=== PATIENT | female | born 1955 | race Caucasian/White ===

== ENCOUNTER 2024-12-16 15:04 | Emergency (ER) | payer BC ==
[~2024-12-16] VITALS: Ht 165.1 cm; Wt 54.5 kg
[2024-12-16 15:28] VITALS: TEMP 98.6
[2024-12-16] MEDS: propofol 10mg/ml 20ml vial IV ONE (15:40)
--- NOTE | 2024-12-16 15:46 | RADIOLOGY REPORT ---
Indication: TRAUMA, FALL, RIGHT SHOULDER PAIN Technique: 3 views right shoulder Comparison: None FINDINGS/IMPRESSION: Comminuted and impacted fracture of the right humeralm head and neck. There is approximately 14 mm d isplacement of the right humeral neck. Displaced greater tuberosity fracture fragment.
[2024-12-16] MEDS: morphine 4 MG/ML inj SYRINge IV ONE (15:48)
[2024-12-16] MEDS: HYDROcodone/acetaminophen 10/325mg tab PO ONE (16:18)
--- NOTE | 2024-12-16 16:25 | Physician Documentation ---
History of Present Illness ~ Chief Complaint: Mechanical Fall Stated Complaint: SHOULDER PAIN Time Seen by MD: 15:24 OK to notify your PCP?: Yes Source: patient, EMS Mode of Arrival: EMS Exam Limitations: no limitations HPI Chief Complaint: Fall, right shoulder injury Caveat: None Independent Historians: Paramedics History of Present Illness: Patient is a 69-year-old woman brought in by paramedics from home after having fallen. This occurred just prior to arrival. Patient was outside putting water in her bird bath when she tripped over the hose. Patient landed on her right shoulder. Pain is moderate to severe and is worse with any attempts at movement. She has swelling to the right shoulder. Patient denies hitting her head or neck. No neck pain. No back pain. Patient denies any other injuries. Review of systems: All systems were reviewed and are negative except for what is indicated in the history of present illness. Past Medical History: Past Surgical History: Noncontributory Social History: Tobacco use, daily alcohol use, no other drug use Medications: Reviewed as documented Nursing Notes Allergies: Reviewed as documented in Nursing Notes Medication Reconciliation Allergies: Coded Allergies: No Known Allergies (Unverified , 12/16/24) Past Medical History Smoking Status: Current every day smoker Review of Systems All Other Systems at this time: Reviewed and Negative ROS PATIENT DENIES ANY OTHER ACUTE SYMPTOMS OTHER THAN ABOVE. ALL OTHER SYSTEMS ARE NEGATIVE Physical Exam Vital Signs: RN Vital Signs have been reviewed: Yes, Temperature: 98.6, Heart Rate: 101, Respiratory Rate: 14, BP: 204/122, Pulse Oximetry: 98, Weight: 54.550 Oxygen Flow Rate: 0 Pulse Oximetry Reflects: adequate oxygenation Physical Exam General Appearance: MODERATE DISTRESS HEENT: Normal OP, moist oral mucosa, PERRL, EOMI, HEAD AND FACE. TRAUMATIC Neck: supple, normal ROM, trachea midline, NO MIDLINE TENDERNESS Pulmonary: No respiratory distress, CTA, BS equal Cardiac: RRR, no murmur, rub or gallop, GI: nondistended, soft, nontender, normal bowel sounds, no guarding, no rebound Extremities: EXTREME ECCHYMOSIS AND SWELLING OVER THE ANTEROMEDIAL RIGHT SHOULDER. DECREASED RANGE OF MOTION. Skin: intact, dry, warm, no rashes Neuro: AAOx3, speech is clear, no focal motor weakness, NORMAL FLEXION EXTENSION OF THE PATIENT'S RIGHT HAND AT THE WRIST. SENSATION INTACT TO LIGHT TOUCH. 2+ RADIAL PULSES. Psych: normal affect, good eye contact, no apparent hallucination, normal speech Progress Results/Orders Results/Orders Orders - MATILDA HERMAN MD Shoulder, Complete (Min 2 Vws) (12/16/24 15:25) Completed Orders - MATILDA HERMAN MD Morphine 4mg/Ml Inj. (Morphine Inj.) (12/16/24 15:25) Shoulder, Complete (Min 2 Vws) (12/16/24 15:25) Propofol Inj (Diprivan Inj) (12/16/24 15:40) Hydrocodone/Apap 10/325 (Raymond 10/325mg (12/16/24 15:50) Medications Received in ER Medications (Trade) Dose Ordered Sig/Geronimo Route PRN Reason Start Time Stop Time Status Last Admin Dose Admin (morphine inj.) 4 mg ONCE ONCE IV 12/16/24 15:25 12/16/24 15:27 DC 12/16/24 15:48 4 MG (Raymond 10/325mg tab) 1 tab ONCE ONCE PO 12/16/24 15:50 12/16/24 15:51 DC 12/16/24 16:18 1 TAB Vital Signs 12/16/24 12/16/24 12/16/24 15:28 15:48 16:18 Temp 98.6 Pulse 101 Resp 16 16 14 B/P (MAP) 204/122 Pulse Ox 98 O2 Flow Rate 0 Medical Decision Making Findings Differential diagnosis includes but is not limited to: HUMERUS FRACTURE, SHOULD ER DISLOCATION, CLAVICLE FRACTURE, ROTATOR CUFF INJURY Shoulder x-ray, two views, indication: Trauma and pain to right shoulder Impression: Comminuted displaced fracture of the proximal humerus at the surgical neck. Emergency department course/medical decision-making: Patient presents with severe swelling pain and tenderness to the right shoulder after having fallen on it. Patient has a comminuted proximal right humerus fracture. Patient will be placed in a shoulder immobilizer. Patient was given morphine 4 mg IV, Zofran 4 mg IV and Raymond 10 mg p.o.. Case discussed with orthopedist Dr. Davey. Patient does not require admission. Patient was stable for discharge. Test results and all the above was discussed and reviewed with the patient. Departure Time of Disposition: 16:20 Disposition: 01 HOME / SELF CARE / HOMELESS Impression: Primary Impression: Fracture of humerus Qualified Codes: S42.241A - 4-part fracture of surgical neck of right humerus, initial encounter for closed fracture Condition: Stable Discharge Instructions: Humerus Fracture Treated With Immobilization, [id number] Additional Instructions: YOU HAVE BROKEN YOUR SHOULDER. FOLLOW-UP WITH DR. DAVEY. CALL HIS OFFICE 1ST THING THURSDAY MORNING. TREATMENT AT THIS TIME WILL BE PAIN MEDICATION AND USE OF THE SHOULDER IMMOBILIZER UNTIL YOU FOLLOW UP WITH DR. DAVEY. Referrals: PETEY DAVEY Jr., MD Prescriptions Hydrocodone Bit/Acetaminophen (Hydrocodone-Apap 10-325 Tablet) 10mg/325mg Tablet 1 TAB PO TID PRN PRN for pain for 10 Days, #30 TAB Prov: MATILDA HERMAN MD 12/16/24 Education Educated: Patient Educated regarding: diagnosis, treatment, need for follow up Signature Scribe Signature: No scribe Attestation: No scribe MATILDA HERMAN MD December 16, 2024 16:25
[2024-12-16] MEDS ORDERED: HYDR-3973 PO (16:28)
[2024-12-16 16:44] VITALS: BP 132/75; PULSE 62; RESP 16; O2SAT 98
== END 2024-12-16 17:17 | disposition home or self-care (01) ==
LOC: ER 15:05
DX: S42.211A Unspecified displaced fracture of surgical neck of right humerus, initial encounter for closed fracture (principal); F17.200 Nicotine dependence, unspecified, uncomplicated; W19.XXXA Unspecified fall, initial encounter; Y93.89 Activity, other specified; Y92.89 Other specified places as the place of occurrence of the external cause; Y99.8 Other external cause status
CPT/HCPCS: 29105; 73030; 96374; 99283; J2270; A4565